=== PATIENT | female | born 1925 | race Caucasian/White ===

== ENCOUNTER 2017-05-22 16:42 | Emergency (ER) | payer MEDICARE ==
--- NOTE | 2017-05-22 17:41 | ED ---
Fall HPI - General Chief Complaint: Fall Stated Complaint: Fall-head pain, blurred vision Time Seen by Provider: 05/22/17 17:28 Source: patient Mode of arrival: wheelchair - History of Present Illness Initial Comments: Patient is an 89-year-old female who presents to the emergency department for evaluation of neck pain after multiple falls on Friday. Patient reports that on Friday, May 18 she spent the afternoon working in her flowerbeds. She reports that she had multiple episodes of falling forward onto her hands and wrists into the shrubbery however couple of times she does believe she struck her head resulting in an abrasion to her left forehead. Patient reports that since a fall in September she has had frequent falling and her physician is aware of this. Because of this she is now walking with a cane. She has not followed with a neurologist or a specialist due to this change in her gait. Patient reports that she experienced no pain upon any of these falls and no pain immediately afterwards. However over the past 2 days she has developed worsening stiffness in her neck. She describes the pain as a tightness down bilateral paraspinal muscles. She denies any midline pain. She denies any numbness, tingling, weakness in her bilateral upper or lower shrubberies. Since the fall she has been able to tend to her ADLs and go about her daily routine. Patient does report that on Friday night she began experiencing dysuria, she was unable to contact her primary care physician but she found a prescription for Cipro from 2011 and decided to start taking. She reports that throughout the week her dysuria has improved. - Related Data Home Medications Medication Instructions Recorded Confirmed Cholecalciferol [Vitamin D3] 1,000 unit PO DAILY 06/19/16 05/22/17 Ibuprofen [Ibuprofen] 400 mg PO BID PRN 06/19/16 05/22/17 Levothyroxine Sodium [Synthroid] 88 mcg PO DAILY 06/19/16 05/22/17 Metoprolol Succinate [Toprol XL] 50 mg PO DAILY 06/19/16 05/22/17 Omeprazole [Omeprazole] 20 mg PO DAILY 06/19/16 05/22/17 Rosuvastatin [Crestor] 10 mg PO HS 06/19/16 05/22/17 Ciprofloxacin HCl [Cipro] 250 mg PO Q12HR 05/22/17 05/22/17 Nortriptyline HCl [Pamelor] 25 mg PO HS 05/22/17 05/22/17 Allergies Allergy/AdvReac Type Severity Reaction Status Date / Time Iodinated Contrast Media - Allergy Unknown Verified 05/22/17 19:06 Oral and Penicillins Allergy Rash/Hives Verified 05/22/17 19:06 shellfish derived [Crab] Allergy Rash/Hives Verified 05/22/17 19:06 Sulfa (Sulfonamide Allergy Rash/Hives Verified 05/22/17 19:06 Antibiotics) Review of Systems ROS Statement: Those systems with pertinent positive or pertinent negative responses have been documented in the HPI. ROS Other: All systems not noted in ROS Statement are negative. Constitutional: Denies: fever, chills, weakness Respiratory: Denies: cough, dyspnea, wheezes Cardiovascular: Denies: chest pain, palpitations Endocrine: Denies: fatigue Gastrointestinal: Denies: abdominal pain, nausea, vomiting Genitourinary: Reports: urgency, dysuria, frequency Musculoskeletal: Reports: other (Neck pain). Denies: back pain Skin: Reports: lesions (Abrasion to left forehead) Neurological: Reports: abnormal gait (Frequent falls for the past year), vertigo. Denies: headache, weakness, numbness, paresthesias, confusion Psychiatric: Denies: anxiety, depression Hematological/Lymphatic: Denies: easy bleeding, easy bruising Past Medical History Past Medical History: GERD/Reflux, Hyperlipidemia, Hypertension, Thyroid Disorder History of Any Multi-Drug Resistant Organisms: None Reported Additional Past Surgical History / Comment(s): Thyroid sx Past Psychological History: No Psychological Hx Reported Smoking Status: Never smoker Past Alcohol Use History: None Reported Past Drug Use History: None Reported General Exam Limitations: no limitations General appearance: alert, in no apparent distress Head exam: Present: normocephalic, other (Well-healing abrasion to left forehead ) Eye exam: Present: PERRL, EOMI ENT exam: Present: normal exam, mucous membranes moist Neck exam: Present: tenderness. Absent: meningismus Expanded Neck exam: Present: other (No midline cervical spine tenderness, paraspinal muscular tenderness and hypertonicity). Absent: midline deformity, anterior neck swelling, thyroid mass Respiratory exam: Absent: normal lung sounds bilaterally, respiratory distress, wheezes, chest wall tenderness, accessory muscle use Cardiovascular Exam: Present: regular rate, normal rhythm GI/Abdominal exam: Present: soft. Absent: distended Extremities exam: Present: normal inspection, full ROM, normal capillary refill. Absent: tenderness, pedal edema, joint swelling, calf tenderness Back exam: Present: paraspinal tenderness. Absent: muscle spasm Neurological exam: Present: alert, oriented X3, CN II-XII intact Psychiatric exam: Present: normal affect, normal mood Skin exam: Present: warm, dry, intact, normal color. Absent: rash Course Vital Signs 05/22/17 05/22/17 05/22/17 16:48 19:09 21:10 Temperature 98.1 F 97.9 F Pulse Rate 68 81 77 Respiratory 20 18 18 Rate Blood Pressure 193/86 96/67 168/81 O2 Sat by Pulse 99 97 98 Oximetry Medical Decision Making - Medical Decision Making Patient was seen and evaluated History is obtained from the patient and family at bedside Patient with multiple low impact falls from a kneeling or slouching physician 4 days ago, now experiencing bilateral paraspinal cervical spine pain. No midline pain. No focal neurologic deficits. No weakness. The patient's advanced age and multiple falls I will obtain a CT of the head and neck Given that the patient is complaining of dysuria I will obtain a urinalysis and culture, patient was prescribed oral Cipro by her primary care physician which was picked up at the pharmacy earlier today. She previously been taking prescription which she had found in her bathroom. CT head and cervical spine with no acute findings Physical exam remains consistent with paraspinal muscle strain These results were discussed with the patient. The patient requested she be given a neck brace, I advised her that this would not be indicated as immobilization can result in worsening muscle spasm. Patient expressed understanding with this. I advised patient to treat muscle spasm with alternating heat and ice as well as gentle stretching and movement. Patient dispersed understanding. Offered to write the patient a new prescription as she is arty taken 3 days of Cipro without improvement, however patient states she feels the Cipro is working and will prefer to stay with this. The patient has follow-up with her primary care physician next week for repeat urinalysis. I advised the patient that she needs to follow-up with a neurologist to discuss her worsening gait and multiple falls. Patient was given a referral to neurology. All questions pertaining to care were answered to the best of my ability. All tests and results were discussed with the patient as well as her son at bedside. The patient was discharged home and advised follow-up with PCP and neurology. Patient was advised to return to the emergency department if she experiences any worsening headache or neck pain, weakness in her arms or legs, change in her gait or any signs or symptoms which she considers concerning. Patient said expressed understanding and agreement with this plan - Lab Data Result diagrams: 05/22/17 18:50 05/22/17 18:50 Lab Results 05/22/17 05/22/17 05/22/17 Range/Units 18:50 18:50 18:50 WBC 10.4 (3.8-10.6) k/uL RBC 4.32 (3.80-5.40) m/uL Hgb 13.5 (11.4-16.0) gm/dL Hct 38.1 (34.0-46.0) % MCV 88.1 (80.0-100.0) fL MCH 31.3 (25.0-35.0) pg MCHC 35.5 (31.0-37.0) g/dL RDW 13.5 (11.5-15.5) % Plt Count 270 (150-450) k/uL Neutrophils % 77 % Lymphocytes % 11 % Monocytes % 6 % Eosinophils % 3 % Basophils % 1 % Neutrophils # 8.0 H (1.3-7.7) k/uL Lymphocytes # 1.1 (1.0-4.8) k/uL Monocytes # 0.7 (0-1.0) k/uL Eosinophils # 0.3 (0-0.7) k/uL Basophils # 0.1 (0-0.2) k/uL PT 10.2 (9.0-12.0) sec INR 1.0 (<1.1) APTT 19.9 L (22.0-30.0) sec Sodium 141 (137-145) mmol/L Potassium 3.8 (3.5-5.1) mmol/L Chloride 107 (98-107) mmol/L Carbon Dioxide 25 (22-30) mmol/L Anion Gap 9 mmol/L BUN 25 H (7-17) mg/dL Creatinine 0.80 (0.52-1.04) mg/dL Est GFR (MDRD) Af Amer >60 (>60 ml/min/1.73 sqM) Est GFR (MDRD) Non-Af >60 (>60 ml/min/1.73 sqM) Glucose 95 (74-99) mg/dL Calcium 9.4 (8.4-10.2) mg/dL Urine Color Urine Appearance (Clear) Urine pH (5.0-8.0) Ur Specific [place] (1.001-1.035) Urine Protein (Negative) Urine Glucose (UA) (Negative) Urine Ketones (Negative) Urine Blood (Negative) Urine Nitrite (Negative) Urine Bilirubin (Negative) Urine Urobilinogen (<2.0) mg/dL Ur Leukocyte Esterase (Negative) Urine RBC (0-5) /hpf Urine WBC (0-5) /hpf Ur Squamous Epith Cells (0-4) /hpf Urine Mucus (None) /hpf 05/22/17 Range/Units 20:33 WBC (3.8-10.6) k/uL RBC (3.80-5.40) m/uL Hgb (11.4-16.0) gm/dL Hct (34.0-46.0) % MCV (80.0-100.0) fL MCH (25.0-35.0) pg MCHC (31.0-37.0) g/dL RDW (11.5-15.5) % Plt Count (150-450) k/uL Neutrophils % % Lymphocytes % % Monocytes % % Eosinophils % % Basophils % % Neutrophils # (1.3-7.7) k/uL Lymphocytes # (1.0-4.8) k/uL Monocytes # (0-1.0) k/uL Eosinophils # (0-0.7) k/uL Basophils # (0-0.2) k/uL PT (9.0-12.0) sec INR (<1.1) APTT (22.0-30.0) sec Sodium (137-145) mmol/L Potassium (3.5-5.1) mmol/L Chloride (98-107) mmol/L Carbon Dioxide (22-30) mmol/L Anion Gap mmol/L BUN (7-17) mg/dL Creatinine (0.52-1.04) mg/dL Est GFR (MDRD) Af Amer (>60 ml/min/1.73 sqM) Est GFR (MDRD) Non-Af (>60 ml/min/1.73 sqM) Glucose (74-99) mg/dL Calcium (8.4-10.2) mg/dL Urine Color Light Yellow Urine Appearance Clear (Clear) Urine pH 6.0 (5.0-8.0) Ur Specific [place] 1.005 (1.001-1.035) Urine Protein Negative (Negative) Urine Glucose (UA) Negative (Negative) Urine Ketones Negative (Negative) Urine Blood Small H (Negative) Urine Nitrite Negative (Negative) Urine Bilirubin Negative (Negative) Urine Urobilinogen <2.0 (<2.0) mg/dL Ur Leukocyte Esterase Large H (Negative) Urine RBC 15 H (0-5) /hpf Urine WBC 28 H (0-5) /hpf Ur Squamous Epith Cells <1 (0-4) /hpf Urine Mucus Rare H (None) /hpf Disposition Clinical Impression: Fall, Cervical strain, acute, Multiple falls Disposition: HOME SELF-CARE Instructions: Cervical Strain (ED), Fall Prevention for Older Adults (ED) Referrals: Maikol Heath MD [Primary Care Provider] - 1-2 days Raji Day MD [STAFF PHYSICIAN] - 1-2 days (Call neurologist to establish care regarding problems walking)
[2017-05-22 19:00] LABS: Basophils # (A) 0.1 k/uL (0-0.2); Basophils % (A) 1 %; CHCM 34.2; Eosinophils # (A) 0.3 k/uL (0-0.7); Eosinophils % (A) 3 %; HCT 38.1 % (34.0-46.0); HDW 2.83; HGB 13.5 gm/dL (11.4-16.0); Luc # (Auto) 0.27; Luc % (Auto) 3; Lymphocytes # (A) 1.1 k/uL (1.0-4.8); Lymphocytes % (A) 11 %; MCH 31.3 pg (25.0-35.0); MCHC 35.5 g/dL (31.0-37.0); MCV 88.1 fL (80.0-100.0); Mean Platelet Volume 6.7; Monocytes # (A) 0.7 k/uL (0-1.0); Monocytes % (A) 6 %; Neutrophils % (A) 77 %; RBC 4.32 m/uL (3.80-5.40); RDW 13.5 % (11.5-15.5); WBC 10.4 k/uL (3.8-10.6); WBC (Perox) 10.18
[2017-05-22 19:10] VITALS: RESP 18
[2017-05-22 19:21] LABS: Anion Gap 9 mmol/L; Blood Urea Nitrogen 25 mg/dL (7-17); Calcium 9.4 mg/dL (8.4-10.2); Carbon Dioxide 25 mmol/L (22-30); Chloride 107 mmol/L (98-107); Glucose 95 mg/dL (74-99); Non-African American GFR(MDRD) >60 (>60 ml/min/1.73 sqM); Potassium 3.8 mmol/L (3.5-5.1); Sodium 141 mmol/L (137-145)
[2017-05-22 19:23] LABS: Prothrombin Time 10.2 sec (9.0-12.0)
[2017-05-22 19:24] LABS: Partial Thromboplastin Time 19.9 sec (22.0-30.0)
--- NOTE | 2017-05-22 20:00 | CT ---
EXAMINATION TYPE: CT brain delia neal con DATE OF EXAM: 05/22/2017 COMPARISON: 06/19/2016 HISTORY: Fall 4 days ago, neck pain. CT DLP: 1294.40 mGycm Automated exposure control for dose reduction was used. TECHNIQUE: CT scan of the head and cervical spine are performed without contrast. FINDINGS: There is no acute intracranial hemorrhage, mass effect, or midline shift identified. The ventricles and sulci are within normal limits in size. The globes are intact and the visualized sin uses are clear. Cervical spine is visualized in its entirety from C1 through upper thoracic levels and demonstrates s atisfactory alignment without evidence of acute fracture or dislocation. Prevertebral soft tissue ap pears within normal limits. The C1-C2 articulation is unremarkable. Prominent multilevel cervical sp ondylosis changes are appreciated. IMPRESSION: 1. There is no acute fracture or dislocation evident in the cervical spine. 2. No acute intracranial hemorrhage, mass effect, or midline shift is seen.
[2017-05-22 20:46] LABS: Appearance,Urine Clear (Clear); Bilirubin,Urine Negative (Negative); Glucose,Urine (UA) Negative (Negative); Ketones,Urine Negative (Negative); Leukocyte Esterase,Urine Large (Negative); Mucus,Urine Rare /hpf; Nitrite,Urine Negative (Negative); Particle Count 4461; Protein,Urine Negative (Negative); RBC,Urine 15 /hpf (0-5); Specific Gravity,Urine 1.005 (1.001-1.035); Squamous Epithelial Cell,Urine <1 /hpf (0-4); UA Billing (MACRO vs. MICRO) MICRO; Urobilinogen,Urine <2.0 mg/dL (<2.0); WBC,Urine 28 /hpf (0-5)
[2017-05-22 21:11] VITALS: BP 168/81; PULSE 77; TEMP 97.9
== END 2017-05-22 21:11 | disposition home or self-care (01) ==
LOC: EC 16:42
DX: S16.1XXA Strain of muscle, fascia and tendon at neck level, initial encounter (principal); K21.9 Gastro-esophageal reflux disease without esophagitis; E78.5 Hyperlipidemia, unspecified; I10 Essential (primary) hypertension; E07.9 Disorder of thyroid, unspecified; Z88.0 Allergy status to penicillin; Z91.041 Radiographic dye allergy status; Z88.2 Allergy status to sulfonamides; Z91.013 Allergy to seafood; Z79.899 Other long term (current) drug therapy; Z91.81 History of falling
CPT/HCPCS: 36415; 70450; 72125; 80048; 81001; 85025; 85610; 85730; 87086; 99284